=== PATIENT | female | born 1970 | race Caucasian/White ===

== ENCOUNTER 2017-02-10 08:43 | Day surgery (SDC) | payer BC ==
--- NOTE | ~2017-02-10 | EGD ---
EGD REPORT [facility] [address] [id number] NAME: SHAYAN OLIVARES : [birth year] STATUS : [facility] [place] [facility] PAT#: [id number] AGE: 46 ADM/REG DATE : 02/10/17 MR#: [id number] REPORT SERV DATE: 02/10/17 DICTATED BY: YUSRA GARCIA DATE: 02/10/17 REPORT STATUS : Draft TRANSCRIBED BY: [facility] DATE: 02/10/17 [facility] Patient Name: Shayan Olivares Date of : 1970 Attending MD: ABDI GARCIA MD Procedure Date No Time: 02/10/2017 Procedure: Colonoscopy Indications: High risk colon cancer surveillance: Personal history of colon cancer, Last colonoscopy: June 2012 Referring MD: FABIAN URBINA MD Medicines: See the Anesthesia note for documentation of the administered medications Complications: No immediate complications. Estimated blood loss: None. Procedure: Pre-Anesthesia Assessment: - ASA Grade Assessment: III - A patient with severe systemic disease. After I obtained informed consent, the scope was passed under direct vision. Throughout the procedure, the patient's blood pressure, pulse, and oxygen saturations were monitored continuously. The PCF [id number] was introduced through the anus and advanced to the ileocolonic anastomosis. The rectum and ileocolonic anastamosis were photographed. Findings: The perianal and digital rectal examinations were normal. There was evidence of a prior end-to-end ileo-colonic anastomosis in the ascending colon. This was patent. This was characterized by healthy appearing mucosa. This was traversed. Non-bleeding internal hemorrhoids were found during retroflexion and were Grade I (internal hemorrhoids that do not prolapse). No other significant abnormalities were identified in a careful examination of the remainder of the colon. Impression: - Patent end-to-end ileo-colonic anastomosis. - Non-bleeding internal hemorrhoids. Recommendation: - Patient has a contact number available for emergencies. The signs and symptoms of potential delayed complications were discussed with the patient. Return to normal activities tomorrow. Written discharge instructions were provided to the patient. - Regular diet. - Discharge patient to home. - Repeat colonoscopy in 5 years for surveillance. EGD REPORT [address] [place]. [address] NAME: SHAYAN OLIVARES : [birth year] STATUS : [facility] [place] [facility] PAT#: [id number] AGE: 46 ADM/REG DATE : 02/10/17 MR#: [id number] REPORT SERV DATE: 02/10/17 DICTATED BY: YUSRA GARCIA DATE: 02/10/17 REPORT STATUS : Draft TRANSCRIBED BY: [employer] DATE: 02/10/17 Procedure Code(s): --- Professional --- 23833, Colonoscopy, flexible, proximal to splenic flexure; diagnostic, with or without collection of specimen(s) by brushing or washing, with or without colon decompression (separate procedure) Diagnosis Code(s): --- Professional --- Z98.0, Intestinal bypass and anastomosis status K64.0, First degree hemorrhoids Z85.038, Personal history of other malignant neoplasm of large intestine CPT copyright 2013 [employer]. All rights reserved. The codes documented in this report are preliminary and upon in flight refueling manager review may be revised to meet current compliance requirements. ABDI GARCIA MD 02/10/2017 11:48 AM This report has been signed electronically. Number of Addenda: 0 Note Initiated On: 02/10/2017 11:16 AM Scope Withdrawal Time 0 hours 0 minutes 0 seconds [id number] [place] [id number]
--- NOTE | ~2017-02-10 | EGD ---
EGD REPORT [facility] [address] [address] NAME: SHAYAN OLIVARES : [birth year] STATUS : [facility] [place] PAT#: [id number] AGE: 46 ADM/REG DATE : 02/10/17 MR#: [id number] REPORT SERV DATE: 02/10/17 DICTATED BY: DATE: REPORT STATUS : Draft TRANSCRIBED BY: [employer] DATE: 02/10/17 Endoscopy Center Patient Name: Shayan Olivares Date of : 1970 Attending MD: ABDI GARCIA MD Procedure Date No Time: 02/10/2017 Procedure: Upper GI endoscopy Indications: Gastro-esophageal reflux disease Referring MD: FABIAN URBINA MD Medicines: See the Anesthesia note for documentation of the administered medications Complications: No immediate complications. Estimated blood loss: None. Procedure: Pre-Anesthesia Assessment: - ASA Grade Assessment: III - A patient with severe systemic disease. - Prior to the procedure, a History and Physical was performed, and patient medications and allergies were reviewed. The patient's tolerance of previous anesthesia was also reviewed. The risks and benefits of the procedure and the sedation options and risks were discussed with the patient. All questions were answered, and informed consent was obtained. Prior Anticoagulants: The patient has taken no previous anticoagulant or antiplatelet agents. After reviewing the risks and benefits, the patient was deemed in satisfactory condition to undergo the procedure. After obtaining informed consent, the endoscope was passed under direct vision. Throughout the procedure, the patient's blood pressure, pulse, and oxygen saturations were monitored continuously. The GIF [id number] was introduced through the mouth, and advanced to the third part of duodenum. The upper GI endoscopy was accomplished without difficulty. The patient tolerated the procedure well. Findings: The examined duodenum was normal. Diffuse mild inflammation characterized by congestion (edema) was found in the gastric antrum. Biopsies were taken with a cold forceps for histology. The cardia and gastric fundus were normal on retroflexion. No other significant abnormalities were identified in a careful examination of the stomach. The Z-line was irregular and was found at the gastroesophageal junction. Biopsy with a cold forceps was performed for histology. EGD REPORT [address] [address] NAME: SHAYAN OLIVARES : [birth year] STATUS : [facility] [place] PAT#: [id number] AGE: 46 ADM/REG DATE : 02/10/17 MR#: [id number] REPORT SERV DATE: 02/10/17 DICTATED BY: DATE: REPORT STATUS : Draft TRANSCRIBED BY: [employer] DATE: 02/10/17 No other significant abnormalities were identified in a careful examination of the esophagus. Impression: - Normal examined duodenum. - Gastritis. Biopsied. - Z-line irregular, at the gastroesophageal junction. Biopsied. Recommendation: - Patient has a contact number available for emergencies. The signs and symptoms of potential delayed complications were discussed with the patient. Return to normal activities tomorrow. Written discharge instructions were provided to the patient. - Regular diet. - Discharge patient to home. - Continue present medications. - Await pathology results. - Use Prilosec (omeprazole) 40 mg PO daily indefinitely. Procedure Code(s): --- Professional --- 15425, Esophagogastroduodenoscopy, flexible, transoral; with biopsy, single or multiple Diagnosis Code(s): --- Professional --- K29.70, Gastritis, unspecified, without bleeding K22.8, Other specified diseases of esophagus K21.9, Gastro-esophageal reflux disease without esophagitis CPT copyright 2013 [employer]. All rights reserved. The codes documented in this report are preliminary and upon medical biller/coder review may be revised to meet current compliance requirements. ABDI GARCIA MD 02/10/2017 11:32 AM This report has been signed electronically. Number of Addenda: 0 Note Initiated On: 02/10/2017 11:20 AM Scope Withdrawal Time 0 hours 0 minutes 0 seconds [id number] [place] [address]
[~2017-02-10 08:43] MED LIST: ACET500CAP PO; ADVIL PO; CYANO1000T PO; DCN100 PO; FORTAMET500 MG PO; IRON PO; KLONO1 PO; MIRCETTE28 DAY; MULTIPLE VIT PO; PRILO PO; PROZAC PO; SLOW FE160 MG PO; TRILEP300 PO; ZEGERID OTC; ZOVIA OR
== END 2017-02-10 23:59 | disposition home or self-care (01) ==
LOC: DMU 08:43
PROVIDERS: Internal Medicine Gastroenterology
PROC: 0DB48ZX Excision of Esophagogastric Junction, Via Natural or Artificial Opening Endoscopic, Diagnostic (ICD-10-PCS; 2017-02-10)
PROC: 0DJD8ZZ Inspection of Lower Intestinal Tract, Via Natural or Artificial Opening Endoscopic (ICD-10-PCS; principal; 2017-02-10 10:30)
PROC: 0DB68ZX Excision of Stomach, Via Natural or Artificial Opening Endoscopic, Diagnostic (ICD-10-PCS; 2017-02-10 10:30)
DX: Z12.11 Encounter for screening for malignant neoplasm of colon (principal); K22.8 Other specified diseases of esophagus; F41.9 Anxiety disorder, unspecified; D64.9 Anemia, unspecified; G43.909 Migraine, unspecified, not intractable, without status migrainosus; K29.70 Gastritis, unspecified, without bleeding; E11.9 Type 2 diabetes mellitus without complications; I51.89 Other ill-defined heart diseases; K64.0 First degree hemorrhoids; Z85.038 Personal history of other malignant neoplasm of large intestine; Z98.0 Intestinal bypass and anastomosis status; Z88.8 Allergy status to other drugs, medicaments and biological substances; Z90.89 Acquired absence of other organs
CPT/HCPCS: 82962; 84703; 88305